=== PATIENT | male | born 1950 | race Caucasian/White ===

== ENCOUNTER → 2016-12-05 | Day surgery (SDC) | payer BC, OTHER ==
[2016-11-23 09:28] VITALS: Ht 185.4 cm; Wt 87.7 kg
[~2016-12-05] VITALS: Ht 185.4 cm; Wt 87.7 kg
[~2016-12-05] MED LIST: ATOR-22 PO; BIOT1CAP3 PO; GLUC250C PO; LIDOCAINE HCL 2% 2 ML VIAL (20MG/ML) ONE; LISI-787 PO; MULT-190 PO; MULT-506 PO; OMEG10007 PO; PRLSR20 PO; PROPOFOL IV EMULSION 10 MG/ML 20 ML VIAL IV ONE; RIVA1TAB4 PO; SELE200T9 PO; SODIUM CHLORIDE 0.9% 500ML 500 ML IV ONE; Vit B12 PO; Vitamin D3 PO
--- NOTE | 2016-12-05 09:55 | Endo History and Physical ---
History & Physical Date of Service: Dec 05, 2016. Chief Complaint: Screening, History of colon polyps Referring Physician: Lukasz Mueller History of Present Illness 65 yo CM who presents for colonoscopy secondary to history of colon polyps. Past Medical History Reflux, Hypertension Past Surgical History Hx Cardiac Surgery: No Hx Internal Defibrillator: No Hx Pacemaker: No Hx Abdominal Surgery: No Hx of Implantable Prosthesis: No Hx Post-Op Nausea and Vomiting: No Hx Cancer Surgery: No Hx Thoracic Surgery: No Hx Orthopedic: No Hx Urinary Tract Surgery: No Family History Colon CA Social History Smoking Status: Former Smoker Hx Substance Use: No Hx Alcohol Use: Yes (OCCASIONAL) Allergies Coded Allergies: No Known Allergies (Unverified , 12/05/16) Current Medications Reported Home Medications Medications Dose Route/Sig Max Daily Dose Days Date Category Prilosec (Omeprazole) 20 Mg Capcr 20 Mg PO DAILY PRN 11/23/16 Reported Xarelto (Rivaroxaban) 20 Mg Tab 20 Mg PO QPM 11/23/16 Reported [Vitamin D3] 1,000 Inter.unit PO DAILY 08/25/15 Reported [Vit B12] 3,000 Mcg PO DAILY 08/25/15 Reported Glucosamine/Chondroitin (Glucosamine-Chondroitin) 1 Cap Cap 1 Cap PO 3XWK 04/02/13 Reported Selenium 200 Mcg Tab 200 Mcg PO 3XWK 04/02/13 Reported Ocuvite Preservision (Multivitamins/Minerals) 1 Tab Tab 1 Tab PO 3XWK 04/02/13 Reported Biotin 5,000 Mcg Cap 5,000 Mcg PO 3XWK 04/02/13 Reported Zestoretic 20MG/12.5MG (HCTZ/Lisinopril) Tab 1 Tab PO QPM 04/02/13 Reported Lipitor (Atorvastatin Calcium) 20 Mg Tab 20 Mg PO QPM 04/02/13 Reported Seaman-3 (Fish Oil) 1 Ea Cap 1,200 Mg PO 3XWK 04/02/13 Reported Multivitamin (Multivitamins) Tab 1 Tab PO QAM 04/02/13 Reported Vital Signs Weight (Kilograms): 87.73 Height (Feet): 6 Height (Inches): 1 Date Time Temp Pulse Resp B/P (MAP) Pulse Ox O2 Delivery O2 Flow Rate FiO2 12/05/16 09:24 36.6 57 16 150/83 (105) 98 Room Air Physical Exam General Appearance: WD/WN, no apparent distress Respiratory/Chest: Auscultation: breath sounds normal Cardiovascular: Heart Auscultation: RRR Abdomen: Bowel Sounds: normal Inspection & Palpation: soft, non-distended, no tenderness, guarding & rebound Assessment and Plan Assessment: 65 yo CM who presents for colonoscopy secondary to history of colon polyps. Plan: Proceed with colonoscopy.
--- NOTE | 2016-12-05 10:22 | GI REPORT ---
Procedure Date: 12/05/2016 9:39 AM Procedure: Colonoscopy Indications: High risk colon cancer surveillance: Personal history of colonic polyps Medicines: Monitored Anesthesia Care Complications: No immediate complications. Estimated Blood Loss: Estimated blood loss: none. Procedure: Pre-Anesthesia Assessment: - Prior to the procedure, a History and Physical was performed, and patient medications and allergies were reviewed. The patient's tolerance of previous anesthesia was also reviewed. The risks and benefits of the procedure and the sedation options and risks were discussed with the patient. All questions were answered, and informed consent was obtained. Prior Anticoagulants: The patient has taken Xarelto (rivaroxaban), last dose was 4 days prior to procedure. ASA Grade Assessment: II - A patient with mild systemic disease. After reviewing the risks and benefits, the patient was deemed in satisfactory condition to undergo the procedure. After I obtained informed consent, the scope was passed under direct vision. Throughout the procedure, the patient's blood pressure, pulse, and oxygen saturations were monitored continuously. The scope was introduced through the anus and advanced to the terminal ileum. The colonoscopy was performed without difficulty. The patient tolerated the procedure well. The quality of the bowel preparation was good. The terminal ileum, ileocecal valve, appendiceal orifice, and rectum were photographed. Findings: Four sessile polyps were found in the rectum, in the transverse colon and in the ascending colon. The polyps were 5 to 8 mm in size. These polyps were removed with a hot snare. Resection and retrieval were complete. Multiple small-mouthed diverticula were found in the sigmoid colon. Impression: - Four 5 to 8 mm polyps in the rectum, in the transverse colon and in the ascending colon, removed with a hot snare. Resected and retrieved. - Diverticulosis in the sigmoid colon. Recommendation: - Resume previous diet. - Continue present medications. - Repeat colonoscopy for surveillance based on pathology results. - Return to primary care physician as previously scheduled. Kashif Burnett, DO 12/05/2016 10:21:55 AM This report has been signed electronically. Note Initiated On: 12/05/2016 9:39 AM I attest to the content of the Intraoperative Record and orders documented therein, exceptions below
--- NOTE | 2016-12-05 10:23 | Discharge Instructions ---
Endoscopy Patient Instructions Date / Procedure(s) Performed Dec 05, 2016. Colonoscopy Allergy Information Coded Allergies: No Known Allergies (Unverified , 12/05/16) Discharge Date / Findings Dec 05, 2016. Colon polyps Rectal polyp Internal hemorrhoids Medication Instructions Stopped Medication(s): Xarelto last taken on 12/01/16 OK to resume all medications today as prescribed Reported Home Medications Medications Dose Route/Sig Max Daily Dose Days Date Category Prilosec (Omeprazole) 20 Mg Capcr 20 Mg PO DAILY PRN 11/23/16 Reported Xarelto (Rivaroxaban) 20 Mg Tab 20 Mg PO QPM 11/23/16 Reported [Vitamin D3] 1,000 Inter.unit PO DAILY 08/25/15 Reported [Vit B12] 3,000 Mcg PO DAILY 08/25/15 Reported Glucosamine/Chondroitin (Glucosamine-Chondroitin) 1 Cap Cap 1 Cap PO 3XWK 04/02/13 Reported Selenium 200 Mcg Tab 200 Mcg PO 3XWK 04/02/13 Reported Ocuvite Preservision (Multivitamins/Minerals) 1 Tab Tab 1 Tab PO 3XWK 04/02/13 Reported Biotin 5,000 Mcg Cap 5,000 Mcg PO 3XWK 04/02/13 Reported Zestoretic 20MG/12.5MG (HCTZ/Lisinopril) Tab 1 Tab PO QPM 04/02/13 Reported Lipitor (Atorvastatin Calcium) 20 Mg Tab 20 Mg PO QPM 04/02/13 Reported Mancos-3 (Fish Oil) 1 Ea Cap 1,200 Mg PO 3XWK 04/02/13 Reported Multivitamin (Multivitamins) Tab 1 Tab PO QAM 04/02/13 Reported Provider Instructions Activity Restrictions - No exercising or heavy lifting for 24 hours. - Do not drink alcohol the day of the procedure. - Do not drive a car or operate machinery until the day after the procedure. - Do not make any important decisions or sign important papers in 24 hours after the procedure. Following Day: - Return to full activity which may include returning to work/school. Diet Start your diet with liquids and light foods (jello, soup, juice, toast). Then eat your usual diet if not nauseated. Treatment For Common After Affects For mild abdominal pain, bloating, or excessive gas: - Rest - Eat lightly - Lie on right side Follow-Up Information Follow-up with Lukasz Mueller as scheduled Anesthesia Information What You Should Know You have had a procedure that required some medicine to reduce anxiety and discomfort. This treatment is called moderate sedation. After receiving the treatment, you may be sleepy, but you will be able to breathe on your own. The effects of the treatment may last for several hours. Follow these instructions along with Activity/Diet recommendations noted above: * Do NOT do anything where dizziness or clumsiness would be dangerous. * Rest quietly at home today, then you can be up and about tomorrow. * Have a responsible person stay with you the rest of today. * You may have had an I.V. today. If so, you may take the dressing off later today. Recommendations Call your doctor if: * Trouble breathing * Continuous vomiting for more than 24 hours * Temperature above 101 degrees * Severe abdominal pain or bloating * Pain not relieved by pain medicine ordered * There is increased drainage or redness from any incision * A large amount of rectal bleeding greater than 2-3 tablespoons. (If you had a polyp/s removed or have hemorrhoids, a small amount of blood - from the rectum is to be expected.) * You have any unanswered questions or concerns. IN THE EVENT OF A SERIOUS EMERGENCY, GO TO THE NEAREST EMERGENCY ROOM Your discharge instructions were prepared by provider Kashif Burnett. Patient Instructions Signature Page Carri Fleming Patient (or Guardian) Signature/Date: I have read and understand the instructions given to me by my caregivers. Caregiver/RN/Doctor Signature/Date: The above-named patient and/or guardian has received patient instructions on this date. + Original Patient Signature Page (only) stays with chart. Please make copy for patient.
--- NOTE | 2016-12-05 10:41 | Anesthesiology Progress Note ---
Anesthesia Post Op Note Date & Time Dec 05, 2016 at 10:41 Vital Signs Pain Intensity: 0 Vital Signs Past 12 Hours Date Time Temp Pulse Resp B/P (MAP) Pulse Ox O2 Delivery O2 Flow Rate FiO2 12/05/16 10:31 52 20 128/79 (95) 97 Room Air 12/05/16 10:20 60 20 113/71 (85) 97 Room Air 12/05/16 09:24 36.6 57 16 150/83 (105) 98 Room Air Notes Mental Status: alert / awake / arousable, participated in evaluation Pt Amnestic to Procedure: Yes Nausea / Vomiting: adequately controlled Pain: adequately controlled Airway Patency, RR, SpO2: stable & adequate BP & HR: stable & adequate Hydration State: stable & adequate Anesthetic Complications: no major complications apparent
[2016-12-05 10:42] VITALS: BP 121/73; PULSE 50; O2SAT 98
== END | disposition home or self-care (01) ==
LOC: C.GI 08:40
PROVIDERS: ATTEND Internal Medicine
DX: Z12.11 Encounter for screening for malignant neoplasm of colon (principal); K62.1 Rectal polyp; K64.8 Other hemorrhoids; K57.90 Diverticulosis of intestine, part unspecified, without perforation or abscess without bleeding; Z86.010 Personal history of colon polyps; Z87.891 Personal history of nicotine dependence

== ENCOUNTER → 2017-02-14 | Outpatient (CLI) | payer BC ==
[~2017-02-14] MED LIST changes: -LIDOCAINE HCL 2% 2 ML VIAL (20MG/ML) ONE; -PROPOFOL IV EMULSION 10 MG/ML 20 ML VIAL IV ONE; -SODIUM CHLORIDE 0.9% 500ML 500 ML IV ONE
[2017-02-14 10:48] LABS: BASO % 0.4 %; BASO ABS # 0.02 K/uL (0-0.2); COMPLETE YES; EOS % 6.7 %; HEMATOCRIT 47.5 % (42-52); IG% 0.2 %; LYMPH % 36.5 %; LYMPH ABS # 1.63 K/uL (1.2-3.4); MEAN CELL VOLUME 93.3 fL (80-100); MEAN CORPUSCULAR HEMOGLOBIN 31.8 pg (25-34); MEAN CORPUSCULAR HGB CONC 34.1 g/dl (32-36); MEAN PLATELET VOLUME 10.3 fL (7.4-10.4); MONO % 10.1 %; NEUT % 46.1 %; PLATELET COUNT 206 K/uL (130-400); RED BLOOD COUNT 5.09 M/uL (4.7-6.1); WHITE BLOOD COUNT 4.46 K/uL (4.8-10.8)
[2017-02-14 11:23] LABS: ALB/GLOB RATIO 1.1 (0.9-2); ALKALINE PHOSPHATASE 58 U/L (45-117); ALT/SGPT 37 U/L (12-78); AST/SGOT 27 U/L (15-37); BLOOD UREA NITROGEN 13 mg/dl (7-18); BUN/CREATININE RATIO 13.9 (10-20); CALCIUM 8.9 mg/dl (8.5-10.1); CARBON DIOXIDE 24 mmol/L (21-32); CHLORIDE 108 mmol/L (98-107); CREATININE 0.92 mg/dl (0.60-1.40); GLUCOSE 75 mg/dl (70-99); HDL CHOLESTEROL 105 mg/dl; POTASSIUM 4.4 mmol/L (3.5-5.1); SODIUM 141 mmol/L (136-145)
[2017-02-14 11:34] LABS: CHOLESTEROL 174 mg/dl (0-200); CHOLESTEROL/HDL RATIO 1.7; LDL CHOLESTEROL CALCULATED 55 mg/dl; PROSTATE SPECIFIC ANTIGEN 0.565 ng/ml (0.000-4.000); TRIGLYCERIDES 71 mg/dl (0-150); VERY LOW DENSITY LIPOPROT CALC 14 mg/dl
== END | disposition home or self-care (01) ==
LOC: C.LABBC 08:38
PROVIDERS: ATTEND Internal Medicine Geriatric Medicine
DX: Z11.59 Encounter for screening for other viral diseases (principal); I10 Essential (primary) hypertension; E78.5 Hyperlipidemia, unspecified; I82.409 Acute embolism and thrombosis of unspecified deep veins of unspecified lower extremity

== ENCOUNTER 2017-07-08 08:29 | Emergency (ER) | payer BC, OTHER ==
[~2017-07-08] VITALS: Ht 185.4 cm; Wt 88.0 kg
[2017-07-08 08:37] VITALS: TEMP 36.9; Ht 185.4 cm; Wt 88.0 kg
[2017-07-08] MEDS ORDERED: ONDANSETRON INJ 2 MG/ML 2 ML VIAL IV STA (08:46)
[2017-07-08] MEDS ORDERED: SODIUM CHLORIDE 0.9% 1000ML 1,000 ML IV STA (08:52)
[2017-07-08 08:55] LABS: BASO % 0.1 %; BASO ABS # 0.02 K/uL (0-0.2); EOS % 0.5 %; EOS ABS # 0.07 K/uL (0-0.5); HEMATOCRIT 47.6 % (42-52); HEMOGLOBIN 17.2 g/dL (14.0-18.0); IG# 0.02 K/uL (0.00-0.02); LYMPH % 12.9 %; LYMPH ABS # 1.78 K/uL (1.2-3.4); MEAN CELL VOLUME 91.7 fL (80-100); MEAN CORPUSCULAR HEMOGLOBIN 33.1 pg (25-34); MEAN CORPUSCULAR HGB CONC 36.1 g/dl (32-36); MEAN PLATELET VOLUME 9.8 fL (7.4-10.4); MONO % 6.1 %; MONO ABS # 0.84 K/uL (0.11-0.59); NEUT % 80.3 %; NEUT ABS # 11.06 K/uL (1.4-6.5); PLATELET COUNT 209 K/uL (130-400); RED CELL DISTRIBUTION WIDTH CV 12.7 % (11.5-14.5); RED CELL DISTRIBUTION WIDTH SD 42.4 fL (36.4-46.3); WHITE BLOOD COUNT 13.79 K/uL (4.8-10.8)
[2017-07-08] MEDS: MoRPHine SULFATE 4 MG/ML 1 ML CARP\\VIAL IV PRN ×2 (08:56→09:17)
--- NOTE | 2017-07-08 08:56 | EMERGENCY ROOM VISIT NOTE ---
History Report prepared by Raul: Vicente Varela Under the Supervision of: Dr. Kurt Davis D.O. First contact with patient: 08:40 Chief Complaint: BACK PAIN Stated Complaint: BACK PAIN History of Present Illness The patient is a 66 year old male who presents to the Emergency Room with complaints of right-sided back pain that began about 14 hours ago. He rates his pain a 9/10 in severity. Last night, the patient was about to move a large appliance with a moving cart. He brought the cart down a set of concrete steps, but the cart slipped out, making him trip and fall onto the handle of the cart, then falling down a couple stairs on his back. His back pain is radiating around his side into his right abdomen. He denies any head trauma, headaches, neck trauma, extremity pain, weakness, or numbness. 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 The patient states that his pain is exacerbated with breathing. Source of History: patient Onset: 14 hours ago Position: back (right-sided) Symptom Intensity: 9/10 Quality: sharp Timing: constant Modifying Factors (Worsening): breathing Associated Symptoms: No headache, No neck pain, No weakness, No numbness Note: His pain is radiating into his right sided abdomen. He denies any extremity pain at this time. Review of Systems See HPI for pertinent positives & negatives. A total of 10 systems reviewed and were otherwise negative. Past Medical & Surgical Medical Problems: (1) Abdominal Pain, Other Specified Site (2) Diverticulosis Colon (W/O Ment Of Hemorrhage) (3) Esophageal Reflux (4) Hyperlipidemia Nec/Nos Family History Blood clots FH: heart disease Social History Smoking Status: Never Smoker Drug Use: none Marital Status: Housing Status: lives with significant other Occupation Status: employed Current/Historical Medications Scheduled Atorvastatin (Lipitor), 20 MG PO QPM Biotin (Biotin), 5,000 MCG PO 3XWK Cholecalciferol (Vitamin D3), 1,000 UNITS PO DAILY Cyanocobalamin (Vitamin B-12), 3,000 MCG PO DAILY Fish Oil ([place]-3), 1,200 MG PO 3XWK Glucosamine-Chondroitin (Glucosamine/Chondroitin), 1 CAP PO 3XWK Lisinopril/Hctz (Zestoretic 20MG/12.5MG), 1 TAB PO QPM Multivitamin (Multivitamin), 1 TAB PO QAM Ocuvite Preservision (Ocuvite Preservision), 1 TAB PO 3XWK Polyethylene Glycol 3350 (Miralax), 17 GM PO DAILY Rivaroxaban (Xarelto), 20 MG PO QPM Selenium (Selenium), 200 MCG PO 3XWK Scheduled PRN Omeprazole (Prilosec), 20 MG PO DAILY PRN for Indigestion Oxycodone Immediate Rel Tab (Roxicodone Ir), 1-2 TAB PO Q4H PRN for Severe Pain Allergies Coded Allergies: No Known Allergies (Unverified , 07/08/17) Physical Exam Vital Signs Date Time Temp Pulse Resp B/P (MAP) Pulse Ox O2 Delivery O2 Flow Rate FiO2 07/08/17 11:03 69 18 156/89 98 Room Air 07/08/17 09:42 76 07/08/17 09:18 82 16 157/90 96 Room Air 07/08/17 08:37 36.9 76 20 164/107 97 Room Air Physical Exam GENERAL: Patient is awake, alert, and in no acute distress. Patient is very anxious appearing and appears to be in significant pain. EYES: The conjunctivae are clear. The pupils are round and reactive. EARS, NOSE, MOUTH AND THROAT: The nose is without any evidence of any deformity. Mucous membranes are moist tongue is midline NECK: The neck is nontender and supple. RESPIRATORY: Splinting respirations noted to the right lung field. No rales, rhonchi, or wheezes appreciated. CARDIOVASCULAR: Regular rate and rhythm noted there no murmurs rubs or gallops normal S1 normal S2 GASTROINTESTINAL: The abdomen is soft. Bowel sounds are present in all quadrants. Abdomen is significantly tender to the RUQ, especially over the rib cage. BACK: No midline tenderness or or step-off noted range of motion in flexion extension as well as rotation no signs of muscle spasm noted MUSCULOSKELETAL/EXTREMITIES: There is no evidence of gross deformity full range of motion is noted in the hips and shoulders SKIN: There is no obvious evidence of any rash. There are no petechiae, pallor or cyanosis noted. NEUROLOGIC: Patient is awake alert and oriented x3 strength is symmetric patellar reflexes are 2+ bilaterally Medical Decision & Procedures ER Provider Diagnostic Interpretation: Radiology results as stated below per my review and radiologist interpretation: CHEST ONE VIEW PORTABLE HISTORY: 66 years-old Male ABDOMINAL PAIN/GI acute generalized abdominal pain COMPARISON: None available TECHNIQUE: Portable AP view of the chest FINDINGS: Cardiomediastinal and hilar silhouettes are within normal limits. Atherosclerosis of the aorta. No pneumothorax, pleural effusion, focal airspace consolidation or overt pulmonary edema. Linear subsegmental bibasilar opacities suggest atelectasis/scarring. Degenerative changes are noted within the spine and shoulders. IMPRESSION: 1. No acute process. 2. Minimal linear subsegmental bibasilar opacities suggest atelectasis or scarring. The above report was generated using voice recognition software. It may contain grammatical, syntax or spelling errors. Electronically signed by: Lemuel Hayes M.D. 07/08/2017 9:09 AM Dictated Date/Time: 07/08/2017 9:[address] WITH CONTRAST CT DOSE: 662.98 mGy.cm HISTORY: Acute left-sided rib pain status post fall fall, left rib pain TECHNIQUE: Multiaxial CT images of the chest were performed following the intravenous administration of contrast. A dose lowering technique was utilized adhering to the principles of ALARA. COMPARISON: Chest radiograph of same day, CT abdomen 12/07/2005. FINDINGS: Thyroid is homogeneous. The heart is mildly enlarged with coronary arterial disease. Thoracic aorta is normal in course and caliber without aneurysm or dissection. Mild atherosclerotic plaquing is noted at the aortic arch. The imaged great vessels appear to be patent. The pulmonary arterial tree appears unremarkable as seen on this study. There is no pathologic adenopathy about the chest identified. No pneumothorax or pleural effusion. Minimal subsegmental dependent bibasilar atelectasis. There is a triangular pleural-based opacity of the inferior segment lingula measuring 2.2 x 3.0 cm nicely seen on image 204 series 4. 4 mm area of fissural lymph node seen adjacent to the left major fissure on image 125 series 4. No suspicious pulmonary nodules identified. The central airways appear to be patent. No acute abnormality identified within the imaged upper abdomen. Mild symmetric bilateral gynecomastia. The bones appear intact. Acute nondisplaced fracture involves the posterior aspect of the right 10th rib and lateral right eighth rib. Multilevel endplate spurring and facet arthrosis of the thoracic spine. Sternum appears intact. IMPRESSION: 1. Focal pleural-based triangular opacity of the inferior segment lingula measuring up to 3.0 cm appears atypical for atelectasis. In the setting of recent trauma, pulmonary contusion is a differential consideration. 2. Acute nondisplaced fractures involve the posterior right 10th and lateral right eighth ribs. No pneumothorax or acute left-sided rib fractures identified. Electronically signed by: Lemuel Hayes M.D. 07/08/2017 9:23 AM Dictated Date/Time: 07/08/2017 9:[address] OF THE ABDOMEN AND PELVIS WITH CONTRAST CLINICAL HISTORY: Fall. Left sided pain. COMPARISON STUDY: CT of the abdomen and pelvis December 07, 2005. TECHNIQUE: Following IV administration of 116 mL of Optiray-320, axial images of the abdomen and pelvis were obtained from the lung bases to the proximal femurs. Images were reviewed in the axial, sagittal, and coronal planes. IV contrast was administered without complication. A dose lowering technique was utilized adhering to the principles of ALARA. FINDINGS: The chest CT will be reported separately. There are acute nondisplaced fractures of the right ninth, 10th and 11th ribs. There is an indeterminate 3 cm subpleural opacity within the lingula. No hemoperitoneum or pneumoperitoneum is present. There is no evidence for traumatic injury to the liver, spleen, adrenal glands, kidneys or pancreas. There is no biliary or pancreatic ductal dilatation. There is left colon diverticulosis without evidence for acute diverticulitis. There is no acute lumbar spine or pelvic fracture. IMPRESSION: 1. Acute nondisplaced fractures of the right ninth, 10th and 11th ribs. 2. 3 cm subpleural opacity within the lingula. This is indeterminate and could reflect atelectasis, contusion or small focus of pneumonia. 3. No evidence of traumatic injury to the solid abdominal viscera. Electronically signed by: Timbo Layne M.D. 07/08/2017 9:35 AM Dictated Date/Time: 07/08/2017 9:15 AM Laboratory Results 07/08/17 08:45 Red Blood Count 5.19, Mean Corpuscular Volume 91.7, Mean Corpuscular Hemoglobin 33.1, Mean Corpuscular Hemoglobin Concent 36.1, Mean Platelet Volume 9.8, Neutrophils (%) (Auto) 80.3, Lymphocytes (%) (Auto) 12.9, Monocytes (%) (Auto) 6.1, Eosinophils (%) (Auto) 0.5, Basophils (%) (Auto) 0.1, Neutrophils # (Auto) 11.06, Lymphocytes # (Auto) 1.78, Monocytes # (Auto) 0.84, Eosinophils # (Auto) 0.07, Basophils # (Auto) 0.02 07/08/17 08:45 Test 07/08/17 08:45 07/08/17 08:50 07/08/17 10:00 White Blood Count 13.79 K/uL (4.8-10.8) Red Blood Count 5.19 M/uL (4.7-6.1) Hemoglobin 17.2 g/dL (14.0-18.0) Hematocrit 47.6 % (42-52) Mean Corpuscular Volume 91.7 fL (80-100) Mean Corpuscular Hemoglobin 33.1 pg (25-34) Mean Corpuscular Hemoglobin Concent 36.1 g/dl (32-36) Platelet Count 209 K/uL (130-400) Mean Platelet Volume 9.8 fL (7.4-10.4) Neutrophils (%) (Auto) 80.3 % Lymphocytes (%) (Auto) 12.9 % Monocytes (%) (Auto) 6.1 % Eosinophils (%) (Auto) 0.5 % Basophils (%) (Auto) 0.1 % Neutrophils # (Auto) 11.06 K/uL (1.4-6.5) Lymphocytes # (Auto) 1.78 K/uL (1.2-3.4) Monocytes # (Auto) 0.84 K/uL (0.11-0.59) Eosinophils # (Auto) 0.07 K/uL (0-0.5) Basophils # (Auto) 0.02 K/uL (0-0.2) RDW Standard Deviation 42.4 fL (36.4-46.3) RDW Coefficient of Variation 12.7 % (11.5-14.5) Immature Granulocyte % (Auto) 0.1 % Immature Granulocyte # (Auto) 0.02 K/uL (0.00-0.02) Prothrombin Time 10.9 SECONDS (9.0-12.0) Prothromb Time International Ratio 1.0 (0.9-1.1) Activated Partial Thromboplast Time 26.3 SECONDS (21.0-31.0) Partial Thromboplastin Ratio 1.0 Est Creatinine Clear Calc Drug Dose 74.0 ml/min Estimated GFR () 81.3 Estimated GFR (Non- 70.2 BUN/Creatinine Ratio 13.7 (10-20) Calcium Level 9.5 mg/dl (8.5-10.1) Total Bilirubin 1.1 mg/dl (0.2-1) Direct Bilirubin 0.3 mg/dl (0-0.2) Aspartate Amino Transf (AST/SGOT) 28 U/L (15-37) Alanine Aminotransferase (ALT/SGPT) 41 U/L (12-78) Alkaline Phosphatase 58 U/L (45-117) Total Protein 8.1 gm/dl (6.4-8.2) Albumin 4.3 gm/dl (3.4-5.0) Lipase 106 U/L (73-393) Bedside Hemoglobin 17.0 g/dl (14.0-18.0) Bedside Hematocrit 50 % (42-52) Bedside Sodium 140 mEq/L (135-144) Bedside Potassium 4.5 mEq/L (3.3-5.0) Bedside Chloride 100 mEq/L (101-112) Bedside Total CO2 29 mEq/l (24-31) Anion Gap 17.0 mmol/L (16-25) Bedside Blood Urea Nitrogen 16 mg/dl (7-18) Bedside Creatinine 1.2 mg/dl (0.6-1.3) Bedside Glucose (other) 105 mg/dl (70-99) Bedside Ionized Calcium (Matthew) 1.18 mmol/l (1.12-1.32) Urine Color YELLOW Urine Appearance CLEAR (CLEAR) Urine pH 6.0 (4.5-7.5) Urine Specific Dendron > 1.045 (1.000-1.030) Urine Protein NEG (NEG) Urine Glucose (UA) NEG (NEG) Urine Ketones NEG (NEG) Urine Occult Blood TRACE (NEG) Urine Nitrite NEG (NEG) Urine Bilirubin NEG (NEG) Urine Urobilinogen NEG (NEG) Urine Leukocyte Esterase NEG (NEG) Urine WBC (Auto) 0 /hpf (0-5) Urine RBC (Auto) 0-4 /hpf (0-4) Urine Hyaline Casts (Auto) 0 /lpf (0-5) Urine Epithelial Cells (Auto) 0-5 /lpf (0-5) Urine Bacteria (Auto) NEG (NEG) Laboratory results per my review. Medications Administered Medications (Trade) Dose Ordered Sig/Fabrice Route Start Time Stop Time Status Last Admin Dose Admin Morphine Sulfate (MoRPHine SULFATE INJ) 4 mg Q15M PRN IV 07/08/17 09:00 07/08/17 11:38 DC 07/08/17 09:17 4 MG Ondansetron HCl (Zofran Inj) 4 mg NOW STAT IV 07/08/17 08:46 07/08/17 08:49 DC 07/08/17 08:57 4 MG Sodium Chloride 1,000 ml @ 999 mls/hr Q1H1M STAT IV 07/08/17 08:52 07/08/17 09:52 DC 07/08/17 08:58 999 MLS/HR ED Course 0840: The patient was evaluated in room A9. A complete history and physical examination were performed. 0846: Ordered Zofran Inj 4 mg IV 0852: Ordered NSS 1,000 ml @ 999 mls/hr IV 0900: Ordered Morphine Sulfate 4 mg IV 1115: Upon reevaluation, the patient is resting and feels significantly better. I discussed the results and treatment plan with him. He verbalized agreement of the treatment plan. He was discharged home. Medical Decision Differential diagnosis: Etiologies such as fracture, dislocation, intra-abdominal, pneumothorax, intrathoracic , intracranial, neurologic, as well as other traumatic pathologies were entertained. Nursing notes reviewed. Additional history is obtained from the patient's significant other. The patient is a 66-year-old male who presented to the emergency department for an evaluation of chest pain. The patient had a fall where he injured the right side of his chest. Currently the patient takes blood thinners. He also had right upper quadrant abdominal pain. I was very concerned the patient may have intrathoracic or intra-abdominal trauma. The patient was treated with pain medication in the emergency department and on subsequent reevaluation was feeling much better. I discussed the patient's laboratory and radiographic studies with him. There was a questionable area on the left side of the lung that they thought could be consistent with a contusion however this is not the site of the trauma. The patient was encouraged to rest and avoid any strenuous activity. I also encouraged him to continue all medications as prescribed. I also encouraged him to return to the emergency department immediately if symptoms change worsening the need arises. Otherwise I recommended that he follow-up with his primary care physician for further evaluation this week. Head Trauma GCS Score: 15 Medication Reconcilliation Current Medication List: was personally reviewed by me Blood Pressure Screening Patient's blood pressure: Elevated blood pressure Blood pressure disposition: Referred to PCP Impression Primary Impression: Fall Additional Impressions: Blunt chest trauma Blunt abdominal trauma Multiple fractures of ribs of right side Scribe Attestation The scribe's documentation has been prepared under my direction and personally reviewed by me in its entirety. I confirm that the note above accurately reflects all work, treatment, procedures, and medical decision making performed by me. Departure Information Dispostion Home / Self-Care Prescriptions Oxycodone Immediate Rel Tab (ROXICODONE IR) 5 Mg Tab 1-2 TAB PO Q4H Y for Severe Pain, #24 TAB Prov: Kurt Davis, DO 07/08/17 Polyethylene Glycol 3350 (MIRALAX) 1 Pow Pow 17 GM PO DAILY, #527 GM Prov: Kurt Davis, DO 07/08/17 Referrals Lukasz Mueller M.D. (PCP) Forms HOME CARE DOCUMENTATION FORM, IMPORTANT VISIT INFORMATION, Work Instructions Patient Instructions Fx Rib, [facility] Additional Instructions Rest and avoid any strenuous activity. Continue to use the incentive spirometer 6-10 times a day as illustrated. Continue using Tylenol as directed for mild pain. Follow-up with your family doctor this week for reevaluation. Discuss the findings on the CAT scan especially in the left lung which may require a repeat CAT scan or x-ray in 6-12 months. Return to the emergency department immediately symptoms change worsening of the need arises. Problem Qualifiers Primary Impression: Fall Encounter type: initial encounter Qualified Codes: W19.XXXA - Unspecified fall, initial encounter Additional Impressions: Blunt chest trauma Encounter type: initial encounter Qualified Codes: S29.8XXA - Other specified injuries of thorax, initial encounter Blunt abdominal trauma Encounter type: initial encounter Qualified Codes: S39.81XA - Other specified injuries of abdomen, initial encounter Multiple fractures of ribs of right side Encounter type: initial encounter Fracture type: closed Qualified Codes: S22.41XA - Multiple fractures of ribs, right side, initial encounter for closed fracture
[2017-07-08] MEDS ORDERED: OPTIRAY 320 IV PRN (09:00)
[2017-07-08 09:03] LABS: ISTAT CREATININE 1.2 mg/dl (0.6-1.3); ISTAT IONIZED CALCIUM 1.18 mmol/l (1.12-1.32); ISTAT POTASSIUM 4.5 mEq/L (3.3-5.0)
[2017-07-08 09:06] LABS: PTT PATIENT 26.3 SECONDS (21.0-31.0)
--- NOTE | 2017-07-08 09:10 | DIAGNOSTIC IMAGING REPORT ---
CHEST ONE VIEW PORTABLE HISTORY: 66 years-old Male ABDOMINAL PAIN/GI acute generalized abdominal pain COMPARISON: None available TECHNIQUE: Portable AP view of the chest FINDINGS: Cardiomediastinal and hilar silhouettes are within normal limits. Atherosclerosis of the aorta. No pneumothorax, pleural effusion, focal airspace consolidation or overt pulmonary edema. Linear subsegmental bibasilar opacities suggest atelectasis/scarring. Degenerative changes are noted within the spine and shoulders. IMPRESSION: 1. No acute process. 2. Minimal linear subsegmental bibasilar opacities suggest atelectasis or scarring. The above report was generated using voice recognition software. It may contain grammatical, syntax or spelling errors. Electronically signed by: Lemuel Hayes M.D. 07/08/2017 9:09 AM Dictated Date/Time: 07/08/2017 9:07 AM
[2017-07-08 09:11] LABS: ALBUMIN 4.3 gm/dl (3.4-5.0); CALCIUM 9.5 mg/dl (8.5-10.1); CREATININE 1.08 mg/dl (0.60-1.40); POTASSIUM 4.3 mmol/L (3.5-5.1)
[2017-07-08 09:14] LABS: TOTAL PROTEIN 8.1 gm/dl (6.4-8.2)
--- NOTE | 2017-07-08 09:24 | DIAGNOSTIC IMAGING REPORT ---
CHEST CT WITH CONTRAST CT DOSE: 662.98 mGy.cm HISTORY: Acute left-sided rib pain status post fall fall, left rib pain TECHNIQUE: Multiaxial CT images of the chest were performed following the intravenous administration of contrast. A dose lowering technique was utilized adhering to the principles of ALARA. COMPARISON: Chest radiograph of same day, CT abdomen 12/07/2005. FINDINGS: Thyroid is homogeneous. The heart is mildly enlarged with coronary arterial disease. Thoracic aorta is normal in course and caliber without aneurysm or dissection. Mild atherosclerotic plaquing is noted at the aortic arch. The imaged great vessels appear to be patent. The pulmonary arterial tree appears unremarkable as seen on this study. There is no pathologic adenopathy about the chest identified. No pneumothorax or pleural effusion. Minimal subsegmental dependent bibasilar atelectasis. There is a triangular pleural-based opacity of the inferior segment lingula measuring 2.2 x 3.0 cm nicely seen on image 204 series 4. 4 mm area of fissural lymph node seen adjacent to the left major fissure on image 125 series 4. No suspicious pulmonary nodules identified. The central airways appear to be patent. No acute abnormality identified within the imaged upper abdomen. Mild symmetric bilateral gynecomastia. The bones appear intact. Acute nondisplaced fracture involves the posterior aspect of the right 10th rib and lateral right eighth rib. Multilevel endplate spurring and facet arthrosis of the thoracic spine. Sternum appears intact. IMPRESSION: 1. Focal pleural-based triangular opacity of the inferior segment lingula measuring up to 3.0 cm appears atypical for atelectasis. In the setting of recent trauma, pulmonary contusion is a differential consideration. 2. Acute nondisplaced fractures involve the posterior right 10th and lateral right eighth ribs. No pneumothorax or acute left-sided rib fractures identified. Electronically signed by: Lemuel Hayes M.D. 07/08/2017 9:23 AM Dictated Date/Time: 07/08/2017 9:12 AM
[2017-07-08] MEDS ORDERED: CYAN10005 PO (09:34)
[2017-07-08] MEDS ORDERED: CHOL1CAP57 PO (09:34)
--- NOTE | 2017-07-08 09:37 | DIAGNOSTIC IMAGING REPORT ---
CT OF THE ABDOMEN AND PELVIS WITH CONTRAST CLINICAL HISTORY: Fall. Left sided pain. COMPARISON STUDY: CT of the abdomen and pelvis December 07, 2005. TECHNIQUE: Following IV administration of 116 mL of Optiray-320, axial images of the abdomen and pelvis were obtained from the lung bases to the proximal femurs. Images were reviewed in the axial, sagittal, and coronal planes. IV contrast was administered without complication. A dose lowering technique was utilized adhering to the principles of ALARA. FINDINGS: The chest CT will be reported separately. There are acute nondisplaced fractures of the right ninth, 10th and 11th ribs. There is an indeterminate 3 cm subpleural opacity within the lingula. No hemoperitoneum or pneumoperitoneum is present. There is no evidence for traumatic injury to the liver, spleen, adrenal glands, kidneys or pancreas. There is no biliary or pancreatic ductal dilatation. There is left colon diverticulosis without evidence for acute diverticulitis. There is no acute lumbar spine or pelvic fracture. IMPRESSION: 1. Acute nondisplaced fractures of the right ninth, 10th and 11th ribs. 2. 3 cm subpleural opacity within the lingula. This is indeterminate and could reflect atelectasis, contusion or small focus of pneumonia. 3. No evidence of traumatic injury to the solid abdominal viscera. Electronically signed by: Timbo Layne M.D. 07/08/2017 9:35 AM Dictated Date/Time: 07/08/2017 9:15 AM
[2017-07-08] MEDS ORDERED: OXYC1TAB3 PO (10:59)
[2017-07-08] MEDS ORDERED: POLY335019 PO (10:59)
[2017-07-08 11:03] VITALS: BP 156/89; PULSE 69; O2SAT 98
== END 2017-07-08 11:22 | disposition home or self-care (01) ==
LOC: C.EDB 08:31 → C.EDA 11:22
DX: S29.8XXA Other specified injuries of thorax, initial encounter (principal); S39.81XA Other specified injuries of abdomen, initial encounter; S22.41XA Multiple fractures of ribs, right side, initial encounter for closed fracture; W10.8XXA Fall (on) (from) other stairs and steps, initial encounter; Y93.89 Activity, other specified; K57.30 Diverticulosis of large intestine without perforation or abscess without bleeding; K21.9 Gastro-esophageal reflux disease without esophagitis; E78.5 Hyperlipidemia, unspecified; Z86.718 Personal history of other venous thrombosis and embolism; Z79.01 Long term (current) use of anticoagulants; Z82.49 Family history of ischemic heart disease and other diseases of the circulatory system

== ENCOUNTER → 2017-09-03 | Outpatient (CLI) | payer BC, OTHER ==
[~2017-09-03] MED LIST changes: +CHOL1CAP57 PO; +CYAN10005 PO; +OXYC1TAB3 PO; +POLY335019 PO; -Vit B12 PO; -Vitamin D3 PO
--- NOTE | 2017-09-03 11:35 | DIAGNOSTIC IMAGING REPORT ---
CHEST 2 VIEWS ROUTINE CLINICAL HISTORY: S22.39XA Rib [id number] pain COMPARISON STUDY: 07/08/2017 FINDINGS: Lungs are clear. Mild emphysematous change. Diaphragms are smooth. No significant cardiac enlargement. IMPRESSION: No acute process. Mild emphysematous change. The above report was generated using voice recognition software. It may contain grammatical, syntax or spelling errors. Electronically signed by: Ralph Chun M.D. 09/03/2017 11:34 AM Dictated Date/Time: 09/03/2017 11:33 AM
== END | disposition home or self-care (01) ==
LOC: C.RADBC 10:36
PROVIDERS: ATTEND Internal Medicine Geriatric Medicine
DX: S22.39XA Fracture of one rib, unspecified side, initial encounter for closed fracture (principal); X58.XXXA Exposure to other specified factors, initial encounter